=== PATIENT | male | born 1970 | race Caucasian/White ===

== ENCOUNTER → 2017-11-15 | Day surgery (SDC) | payer OTHER ==
[~2017-11-15] VITALS: Ht 177.8 cm; Wt 84.8 kg
[~2017-11-15] MED LIST: OXYCODONE HCL5 M1 PO
--- NOTE | 2017-11-15 12:11 | Operative Report ---
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 He had pain that radiated to his testicles bilaterally but denied noticing any bulge. He has pain on a daily basis now which was refractory to PT. He uses Tylenol and Advil regularly as well as icy hot across the pubic region as well as baclofen nightly. He gets worsening pain with incline walking or driving or sitting more than 30 minutes with most pain in the suprapubic region but testicular pain becoming dominant feature of his syndrome. He has had testicular ultrasounds negative CT abdomen pelvis showing only some fat-containing bilateral inguinal hernias which are small and negative MRI of the abdomen and pelvis on exam he was very tender along the left inguinal floor especially and had some mild right abductor origin tenderness worse with resistance. Straight leg raise sit up and hip flexors and left ADductors are all negative. He seen A number of him specialist who believes he may have a sports hernia my conclusion is similar probably of the posterior wall deficiency type with a minor right-sided abductor lesion as well. A robotic repair of both groins is planned. This would also allow for exploration of any occult inguinal hernias of standard variety as well as removal of any lipomas. Operative/Procedure Note Note: Patient is taken to the operating room placed on the operating table supine position. Following an awake timeout he underwent uneventful induction of general endotracheal anesthesia had his arms tucked by his side Venodyne boots in place and received Ancef IV prior to skin incision. The abdomen and groin were clipped widely of hair prepped with DuraPrep and draped in usual sterile fashion. He was placed in slight Trendelenburg position. Local anesthetic was now infiltrated in the supraumbilical area where a curvilinear incision was made and carried down to the fascia. The fascia was open for short vertical distance in the midline exposing the preperitoneal fat which was elevated and divided with the cautery to expose the peritoneum which was then incised carefully to gain entry safely to the peritoneal cavity. Finger sweep revealed there were no adhesions and a Bobo 12 mm port aerocele variety was placed and pneumoperitoneum achieved. The 8 mm 30degree da Melissa X I scope was inserted and one could see that the groin on both sides looked unremarkable. The internal rings were closed in one could easily see the landmarks of the epigastric vessels and cord and cord structures. We placed 2 8 mm working ports laterally just handsbreadth lateral to the midline just slightly above the level of the umbilicus. These were proceeded by infiltration of local anesthetic. Now the excised da Melissa robot was docked from the patient's left side and targeted to the midline just suprapubically. We placed a fenestrated bipolar and the #2 arm with 3 having the camera #4 on the right side having a monopolar jazmín. Arm 1 was sterilely stowed. The patient had been placed in 15 degrees Trendelenburg prior to docking. Now I created a peritoneal flap on the right side 5 cm above the internal ring and carried out flap laterally and then medially across the median umbilical ligament. The preperitoneal plane was now dissected down medially until the pubic ramus was identified. At this time it became clear that there was a significant laxity in the right direct space consistent with diagnosis of posterior wall deficiency sports hernia. The fat that was occupying the space was cleared away as was the fat overlying the ramus including over midline to the symphysis and then working along the linea alba to allow space for the nose of the mesh to eventually reside. Laterally I had created a space preserving some of the fibrofatty tissue on the lateral musculature and then began to peel the peritoneum off of the cord. I was able to do this to the point to the point where the vas deviated medially and then cleared the gutter between the direct and indirect spaces to accommodate the edge of mesh. There seem to be some vessels laterally exiting out the internal ring suspicious for a possible lipoma. With external compression we did not see a lipoma but with some traction on these vessels following it out a internal ring we reduced a moderate sized lipoma that was distinct from the cord and easily off it. Dissected this back keeping these attachments intact rolling it off of the inguinal floor so it would sit in front of the mesh. I now selected a 3D max medium right mesh and placed it into the space where it fit nicely. Tail sat in the lateral space while the nose of the mesh overlapped the symphysis and the entire myopectineal orifice was covered. I used 3 sutures of 2-0 Tycron to secure the mesh at the rectus muscle medially at Tahir's ligament and then out laterally avoiding the triangle of pain. The flap was now closed with a running 2-0 absorbable V lock suture. A mirror incision was now made in the opposite groin 5 cm above the internal ring and the flaps created similarly. The epigastric vessels were easily seen and preserved and I dissected down to the same preperitoneal space right to the ramus. It was filmy layer that was divided connecting to the opposite side so the linea alba was open at this level. Laterally the space was created in a similar fashion preserving the fibrofatty tissue on the lateral musculature while the peritoneum was peeled off of the cord. On this side there was a also a lipoma which was larger and was able to be reduced in toto easily from the cord. There is no evidence of any indirect hernia. There was a laxity of the direct space on this side as well but was but it was much less pronounced. The fat that was overlying it was removed and peeled away so the mesh would have direct contact with the musculature of this area. A 3 DMax left mesh was now selected and placed into the space such that it overlapped the nose of the opposite mesh and the tail sat in the lateral space nicely with the inferior edge overlapping the ramus. Again there was excellent coverage of the entire myopectineal orifice and the large lipoma sat well below the edge of the mesh as it did on the opposite side. I secured the mesh in the exact same locations with a 2-0 Tycron suture and closed the flap with a V lock 2-0 absorbable suture once again. Now the robot was undocked and the ports removed under direct vision. The umbilical incision was closed with 2 [id number] sutures of 0 Maxon followed by a more superficial layer of 2-0 Vicryl followed by 4-0 Monocryl running subarticular skin closure. Steri-Strips 4 x 4's and OpSite were placed. Met tolerated procedure well taken to the recovery room in satisfactory condition extubated all sponge needle and some counts from correct times to completion of the case. He had no pneumo scrotum of note and no subcutaneous emphysema. Findings: Laxity of the direct space bilaterally consistent with posterior wall deficiency type sports hernias. Bilateral lipomas left greater than right. No evidence of indirect hernia or true direct hernia. Discharge Disposition: PACU
== END ==
LOC: STS 02:30
DX: K40.20 Bilateral inguinal hernia, without obstruction or gangrene, not specified as recurrent (principal); R10.30 Lower abdominal pain, unspecified
CPT/HCPCS: 49650; S2900; C1781; J0131; J0690; J2250; J3490